=== PATIENT | female | born 1965 | race Caucasian/White ===

== ENCOUNTER → 2024-05-01 13:19 | Outpatient (REF) | payer BC, SELFPAY | LOC: HWWDC 13:19 | PROVIDERS: ATTENDING PHYSICIAN Nurse Practitioner Family; FAMILY PHYSICIAN Nurse Practitioner | DX: Z12.31 Encounter for screening mammogram for malignant neoplasm of breast (principal); N83.209 Unspecified ovarian cyst, unspecified side | CPT/HCPCS: 76830; 76856; 77063; 77067 ==

== ENCOUNTER → 2024-06-18 18:09 | Outpatient (REF) | payer BC, SELFPAY | LOC: MRI 3T 18:09 | PROVIDERS: ATTENDING PHYSICIAN Obstetrics & Gynecology Gynecologic Oncology; FAMILY PHYSICIAN Nurse Practitioner; REFERRING PHYSICIAN Obstetrics & Gynecology | DX: N83.202 Unspecified ovarian cyst, left side (principal); R19.04 Left lower quadrant abdominal swelling, mass and lump | CPT/HCPCS: 72197; A9575 ==

== ENCOUNTER 2024-09-18 06:38 | Day surgery (SDC) | payer BC, SELFPAY ==
[2024-09-03 14:08] VITALS: BMI 33.6
--- NOTE | 2024-09-16 22:05 | W.CON.GYNONC ---
Consultation
-
Date/Time Consultation Performed: 09/16/2024
Performing Provider: Jann Pearl
Chief Complaint
-
Pelvic Mass
History of Present Illness
58�year�old�G2�P2�0�0�2�white�female�referred�to�me�by�Dr.�Valdivia�for�surgical�management�of�ovarian�cyst.�The�patient�admits
to�having�had�a�CT�scan�abdomen�and�pelvis�in�ER�in�May�2018�for�abdominal�pain�and�bloody�diarrhea�at�which�time�on�the�left ovary�there�was�a�2.5�cm�cyst.�Following�that�the�patient�was�recommended�to�have�a�gynecologic�visit,
Pelvic�ultrasound�February�18,�2019�left�ovary�had�simple�appearing�cyst�2.9�x�2.3�x�2.4�cm Pelvic�ultrasound�[place]�28,�2019�left�ovary�contains�29�mm�anechoic�cyst�unchanged�compared�to�prior�exam
Pelvic�ultrasound�dated�February�13,�2020�shows�left�ovary�again�with�stable�31�x�24�x�25�mm�mm�spherical�anechoic�cyst Pelvic�ultrasound�dated�Randa�13,�hows�simple�cyst�measuring�3.8�x�2.8�x�3.6�cm.
Pelvic�ultrasound�Dylan�6,�2�shows�left�ovary�containing�cyst�4.4�x�2.9�x�3.9�cm�with�no�evidence�of�septation�or�nodularity. Pelvic�ultrasound�Dylan�7,�2022�shows�simple�left�ovarian�cyst�4.6�x�3.2�x�4.2�cm.
Most�recent�ultrasound�performed�February�25,�2024�shows�left�ovary�containing�a�simple�cyst�measuring�5.1�x�3.4�x�4.3�cm.�The
remainder�of�the�scan�is�essentially�in�the�care�of�uterus�measuring�7.1�x�2.4�x�3.6�cm,�subendometrial�cyst�is�present�incidentally, endometrial�echo�was�5�mm�and�shows�no�focal�abnormality.�Right�ovary�measures�2.2�cm�with�no�focal�lesions.
CA125�March�13,�2024�was�3.8,�previously�in�2023�was�3.7 Past�medical�history�significant�for�hypertension,�gastroesophageal�reflux�disease,�anxiety�and�depression,�desire�for�weight�loss
Past�surgical�history�significant�for�laparoscopic�cholecystectomy,�as�well�as�right�total�knee�replacement Medications�include�amlodipine,�Lexapro,�omeprazole,�metformin,�One�A�Day�vitamin,�magnesium
Family�history�significant�for�mother�with�atrial�fibrillation,�mother�with�emphysema�and�father�with�sleep�apnea Social�history�patient�is�,�she�is�retired,�she�did�not�smoke�does�not�drink�alcohol�and�never�has�used�drugs�or�marijuana
Meds:
amlodipine�10�mg�tablet 06/11/2024 0 20�mg�1�p.o. q.�day calcium�275�mg�D3�25�mcg�and�choline�60�mgsilicon�3�mg�capsules 07/09/2024 0 Lexapro�10�mg�tablet 06/11/2024 0 1�p.o.�q.�day magnesium�250�mg�tablet 06/11/2024 0 600�mg�1�p.o. q.�day
metformin�500�mg/5�mL�oral�solution 06/11/2024 0 1�p.o.�three times�a�day (TID) multivitamin�Ca�iron�minerals�27�mg�0.4�mg�tablet 06/11/2024 omeprazole�20�mg�tablet,delayed�release 06/11/2024 0 1�p.o.�q.�day zolmitriptan�2.5�mg�tablet 07/09/2024 0 prn
Medical History
Allergies
Allergies reflect when allergies were last updated in [facility].
lansoprazole Allergy (Verified 09/11/24 12:18)
DIARRHEA
Penicillins Allergy (Verified 09/11/24 12:18)
RASH/SEVERE DIARRHEA
Physical Exam
Physical Exam
Pelvic�Examination: External�normal�labia,�urethra,�anus.� Vagina:�Normal�mucosa.� cervix�normal�appearance uterus,�normal�size,�no�parametria�nodularity bimanual�exam�shows�no�abnormality� Adnexa:�No�pelvic�mass.� RVE:�no�masses�or�nodularity
General:�Well�developed,�well�nourished�patient.�In�no�acute�distress. Neck:�No�thyromegaly.�No�cervical�lymphadenopathy. Lungs:�Clear�to�auscultation.�Good�air�movement�bilaterally. Cardiac:�Regular�rate.�Regular�rhythm.�No�murmurs�appreciated.
Right�Breast:�No�masses�or�dimpling.�No�nipple�discharge. Left�Breast:�No�masses�or�dimpling.�No�nipple�discharge. Abdomen:�Abdomen�is�soft.�Non�tender�to�palpation.�Non�distended. Extremities:�No�edema.
Hematologic/Lymphatic:�No�palpable�lymphadenopathy. Musculoskeletal:�Normal�range�of�motion.�Strength�and�Tone�are�normal. Skin:Non�jaundiced.�No�petechia.�No�purpura. Neurologic:�Speech�is�fluent.�Normal�gait�and�station.�Cranial�nerves�intact
Results
-
[facility]
[address] [place] [address]
[phone]
Patient Name: EVELINE WEAVER
: 1965
Unit Number: [id number]
Age/Sex: 58/F
Patient
Location: MRI 3T
Order Provider: Jann Pearl MD
Exam Service Date: 06/18/24

Magnetic Resonance Imaging Rpt
SignedOrder #:[id number]
Exams: MR Pelvis W/o & With Contrast
CPT: 77502
PROCEDURE: MR Pelvis W/o  With Contrast
CLINICAL INDICATION: Left ovarian cyst.
TECHNIQUE: An MRI examination of the pelvis was performed with and without intravenous contrast on a 3 Myra magnet. Sagittal T2 fat-suppressed, axial T1, axial T1 fat-suppressed, axial T2 fat-suppressed, coronal T2 fat-suppressed, and coronal T2
weighted imaging sequences were obtained prior to the administration of intravenous contrast. Following the intravenous administration of 18 mL Clariscan gadolinium contrast material, axial T1 gradient echo images were obtained during various phases
of enhancement.
COMPARISON: Pelvic ultrasound 05/01/2024.
FINDINGS:
The uterus is anteverted and measures 6.4 x 2.7 x 3.8 cm. The uterine myometrium is homogeneous. The endometrium is thin and measures 1 mm in thickness. The cervix is unremarkable.
A simple cyst arises from the right ovary and measures up to 4.9 cm in size. Homogeneously hyperintense T2 signal and hypointense T1 signal. No evidence for internal septations or nodularity. No abnormal postcontrast enhancement.
The right ovary measures 1.5 x 1.2 cm.
The urinary bladder is unremarkable. No pelvic lymphadenopathy or free fluid.
Chronic degenerative changes of lower lumbar spine. The bone marrow signal is otherwise unremarkable.
IMPRESSION:
4.9 cm simple cyst of the right ovary. No MRI evidence for internal septations, nodularity, or abnormal postcontrast enhancement.
Electronically signed by Narendra Steel, 06/19/2024 11:21 AM
Impression / Plan
-
58�yo�woman�presenting�with�simple�cyst�of�left�ovary�5�cm�in�size.� MRI�shows�4.9�cm�cyst�which�is�simple.�Recommendation�is�observation�versus�surgery�for�definitive�management. \\Patient�has�recovered�fully�from�her�recent�cataract�surgery
She�is�tentatively�scheduled�for�robotic�assisted�bilateral�salpingo�oophorectomy�Randa�15.�Informed�consent�was�signed�in�the�office today�risk�benefits�alternatives�were�reviewed
Risk�of�surgery�including�infection�bleeding�injury�to�adjacent�organs�DVT�pulmonary�embolism�and�cardiovascular�complications were�discussed�and�reviewed
[2024-09-18] VITALS (14 sets, daily range): BP systolic 74–133; BP diastolic 44–74; BMI 33.6
[2024-09-18 12:40] LABS: Glucose - Point of Care 127 mg/dl (70-99)
[2024-09-18] MEDS: TYLENOL 1000 MG PO (12:59)
[2024-09-18] MEDS: NORMOSOL-R/PLASMALYTE-A 1000 IV (13:00)
[2024-09-18] MEDS: CELEBREX 200 MG PO (13:00)
[2024-09-18] MEDS: NEURONTIN 300 MG PO (13:00)
[2024-09-18] MEDS: TRANSDERM-SCOP 1 PATCH TRANSDERM (13:07)
[2024-09-18] MEDS: HEPARIN 5000 UNITS SC (14:28)
--- NOTE | 2024-09-18 16:50 | OR.RPT ---
Operative Report
Operative Report
Date of procedure: September 18, 2024
Surgeon: Jann Pearl
Certified Optician Surgeon: Woodrow Cobb PA-C
Preoperative diagnosis: Enlarging left ovarian mass, 6 cm
Postoperative diagnosis: Benign appearing left ovarian cyst probable cystadenoma pending final pathology
Procedure: Robotic assisted laparoscopic bilateral salpingo-oophorectomy with pelvic washings
Anesthesia: General, endotracheal intubation
Estimated blood loss: 25 cc
Complications: None
Findings: Intraoperative survey of the abdomen reveals adhesions of the omentum to right upper quadrant, bilateral lobes of liver spleen stomach omentum and right and left diaphragms are normal. Visualized portions of small bowel are within normal
limits. There is colonic adhesions in the left lower quadrant to ovary and pelvic sidewall, there is extensive varicosities of right ovarian vessels. Uterus and cervix appears to be unremarkable there is no pelvic implants. Left ovary is enlarged
to 6 cm with no excrescences on the surface
Procedure in detail: This patient was taken to the operating room placed in supine position, general anesthesia was administered and she was intubated without any difficulty she was placed in lithotomy position using yellowfin stirrups and prepped
in the abdomen perineum and vagina. Sloan catheter was inserted under sterile condition and the patient was draped. Timeout procedure was carried out. The placed in uterine manipulator with 3 cm DAVID ring in the cervix after dilating the cervical
canal. Attention was turned to the abdomen Veress needle was inserted just below the left subcostal margin and insufflation with CO2 gas up to pressure of 15 mmHg was performed. XI robotic port was inserted 25 cm cephalad to symphysis pubis into
the peritoneal cavity, along the midline. Additional 8 mm robotic ports were placed in the right and left upper quadrants and right and left lateral abdomen. Pelvic patient was placed in 28 degree Trendelenburg., Robotic system was docked. I
went ahead and sealed and divided both round ligaments anterior and posterior leaves of the broad ligament were dissected open. Anterior and posterior leaves of the broad ligament were dissected open, the course of the ureter was identified
bilaterally in the retroperitoneum and both IP ligaments were isolated after development of an avascular window between IP ligament and ureters. Both IP ligaments were sealed 3 times and divided both tubes and ovaries were detached from the
coronary of the uterus. Ligating fallopian tube as well as utero-ovarian ligaments and the remainder of the vasculature. Each tube and ovary was placed in a separate endoscopic bag, washings had been collected and submitted for cytology. Right
and left uterine cornua were hemostatic and both ovarian vessels were examined and there was no bleeding. Robotic system was undocked and pneumoperitoneum was released. All ports were removed the incision in the right lower quadrant was slightly
extended both at the level of the skin and fascia and both bags with specimens were removed and submitted to pathology a figure of 8 suture of 0 Vicryl was used to close the fascia at the right lower quadrant port site. Following this all incisions
were closed with 4-0 Monocryl at the level of the skin in a subcuticular fashion. Sloan catheter was removed and the uterine manipulator was removed patient was awakened extubated and returned back to recovery room stable awake and extubated
condition. Counts of laps instruments and needle was correct x 2. I was present and scrubbed for entire procedure as dictated above.
Disposition: To PACU stable awake and extubated
[2024-09-18 17:01] LABS: Glucose - Point of Care 118 mg/dl (70-99)
[2024-09-18] MEDS: MORPHINE SULFATE 2 MG IV (17:23)
== END 2024-09-18 18:41 | disposition home or self-care (01) ==
LOC: SDS 06:38
PROVIDERS: ATTENDING PHYSICIAN Obstetrics & Gynecology Gynecologic Oncology; FAMILY PHYSICIAN Nurse Practitioner
DX: N83.202 Unspecified ovarian cyst, left side (principal); R19.04 Left lower quadrant abdominal swelling, mass and lump
CPT/HCPCS: 58661; 36415; 82962; 86850; 86900; 86901; 88112; 88305; 93005

== ENCOUNTER 2025-02-25 07:54 | Emergency (ER) | payer BC, SELFPAY ==
[2025-02-25 07:59] VITALS: BP 148/79
--- NOTE | 2025-02-25 08:22 | ED.GENMED ---
History of Present Illness
General
Chief Complaint: Skin Surface Trauma
Source: patient
Exam Limitations: none
Time Seen by Provider: 02/25/25 08:15
History of Present Illness
History of Present Illness:
Patient cut both hands, more specifically the left hand with a shattered mug. Laceration to the volar aspect on the thenar side of the left hand. No numbness tingling or weakness. Some pain with thumb motion. Superficial laceration to the right
hand on the volar aspect. Tetanus less than 5. No other injury or complaint
Past History
Past History
ED Past Medical History: Other (Gallstones)
ED Past Surgical History: None
Social History
Tobacco: Non-smoker
Alcohol: None
Drug: None
Personal:
Living: with family
Family History
Family History: Other
Phy Exam
Physical Exam
Physical Exam:
General: Nontoxic appearing in no distress
Skin: Warm and dry, no rash
Neuro: Alert, nontoxic, grossly nonfocal
Psychiatric: Good eye contact and appropriate
Musculoskeletal: 2 cm L-shaped laceration to the thenar aspect of the left hand. Some pain with thumb flexion although motor or sensory neurovascular intact. No foreign body. Very superficial laceration to the volar aspect of the right hand. No
deep wound. No full-thickness laceration no foreign body.
Course
Orders/Labs/Results
Orders:
Orders
02/25/25 08:21
Hand, Left 3 View [CR Hand - Left Min 3 Views] Urgent
Comment:
Reason For Exam: Laceration glass/evaluate for foreign body
Vital Signs
Initial and Last Documented VS:
Initial Vital Signs
Temp Pulse Resp BP Pulse Ox
98.2 F 81 16 148/79 96
02/25/25 07:59 02/25/25 07:59 02/25/25 07:59 02/25/25 07:59 02/25/25 07:59
Last Documented Vital Signs
Temp Pulse Resp BP Pulse Ox
98.2 F 81 16 148/79 96
02/25/25 07:59 02/25/25 07:59 02/25/25 07:59 02/25/25 07:59 02/25/25 08:23
Procedures
Laceration Closure
Left thenar hand:
Status of Wound: clean
Size of Wound in cm: 2
Description of Wound Edges: sharp
Preparation: cleaned with saline and cleaned with Betadine
Anesthesia: 1% Lidocaine
Revision/Debridement: routine- no revision
Wound exploration: explored to base- no FB
Type of Closure: single layer closure
Skin Closure Material: 5-0 nylon
Number of sutures: 5
MDM/Problems Addressed
Differential Diagnosis Includes:
Plan is x-ray to rule out foreign body. Laceration repair to the left hand. Wound management to the right hand. Tetanus up-to-date.
*Radiology
Radiology exam reviewed: preliminary read by ED provider (Negative foreign body) and radiology read reviewed (Negative foreign body)
*Pulse Oximetry
SaO2: 96
Oxygen Mode of Delivery: Room air
Patient hypoxic: no
*Critical Care Note
Total Time (30-74mins, 75-104mins- exclusive of procedures): Not Applicable
ED Attending Note
-
Portions of this chart may have been created with voice recognition software.� Occasional wrong word or��sound alike� substitutions may have occurred due to the inherent limitations of voice recognition software.
Discharge Plan
Departure
Patient Disposition: Home (Routine Discharge)
Date of Disposition: 02/25/25
Time of Disposition: 09:09
Patient with high blood pressure during this ER visit?: Yes
Discharge Problem:
Left hand laceration, Right hand abrasion
Instructions: Laceration Repair With Stitches (DC), BLOOD PRESSURE
Prescriptions:
No Action
zolmitriptan [Zomig] 2.5 MG tablet
2.5 mg PO PRN PRN (Reason: migraine)
ibuprofen 400 MG tablet
400 mg PO PRN PRN (Reason: PAIN)
acetaminophen [Tylenol Extra Strength] 500 mg Capsule
500 mg PO PRN PRN (Reason: PAIN)
amlodipine 10 mg Tablet
10 mg PO DAILY
magnesium 200 mg Tablet
600 mg PO HS
Calcium 600 + Minerals Tablet
1 tab PO DAILY
escitalopram oxalate 10 mg Tablet
10 mg PO DAILY
metformin 1,000 mg Tablet Extended Release 24hr
1,000 mg PO QPM
metformin 500 mg Tablet Extended Release 24hr
500 mg PO DAILY
omeprazole 20 mg Tablet,Delayed Release (Dr/Ec)
20 mg PO DAILY
One Daily Women 50 Plus 400-120 mcg-mg Tablet
1 tab PO DAILY
Referrals:
Alanna Aden CRNP [Family Provider, Family Practice]
Activity Restrictions/Additional Instructions:
Suture removal in 7 to 10 days
Interventions
Interventions:
*General Assessment Last Done: 02/25/25 07:59
*Neglect/Abuse Screening Last Done: 02/25/25 08:02
*ED COVID-19 Vaccine History Last Done: 02/25/25 07:59
*ED Influenza Vaccine History Last Done: 02/25/25 07:59
[facility] Fall Risk Assessment Tool Last Done: 02/25/25 08:45
*Risk Screen - Suicide (C-SSRS) Last Done: 02/25/25 07:59
*Nursing Disposition Last Done: 02/25/25 09:18
ED-Skin Assessment Last Done: 02/25/25 08:46
Discharge Date and Time
Discharge Date/Time: 02/25/25 09:18
Print Language: TAMAZIGHT
[2025-02-25 08:45] VITALS: BMI 34.8
== END 2025-02-25 09:18 | disposition home or self-care (01) ==
LOC: EMR 07:54
PROVIDERS: EMERGENCY PHYSICIAN Emergency Medicine; FAMILY PHYSICIAN Nurse Practitioner
DX: S61.412A Laceration without foreign body of left hand, initial encounter (principal); S60.511A Abrasion of right hand, initial encounter; W25.XXXA Contact with sharp glass, initial encounter; R03.0 Elevated blood-pressure reading, without diagnosis of hypertension
CPT/HCPCS: 99283; 12001; 73130